=== PATIENT | male | born 1980 | race Caucasian/White ===

== ENCOUNTER 2018-01-03 17:44 | Emergency (ER) | payer OTHER ==
[2018-01-03] MEDS ORDERED: ASPIRIN 81 MG TABLET, CHEWABLE PO ONE (18:29)
--- NOTE | 2018-01-03 18:29 | ER Document Report ---
ED Medical Screen (RME) - General Chief Complaint: Near Syncope Stated Complaint: ARM NUMBNESS Time Seen by Provider: 01/03/18 18:25 Mode of Arrival: Ambulatory Information source: Patient TRAVEL OUTSIDE OF THE [place] IN LAST 30 DAYS: No - HPI Patient complains to provider of: Chest pain, left arm numbness, near syncope Notes: 01/03/18 18:28 Patient is a 37-year-old male presenting to the emergency room today complaining of left-sided chest pain with pins and needles sensation down the left arm and a near syncopal episode that occurred today, he has a history of hypertension and stopped taking medication for this, also has a history of atrial fibrillation 1 episode - Related Data Allergies/Adverse Reactions: Penicillins Allergy (Verified 01/03/18 17:49) Past Medical History - Social History Chew tobacco use (# tins/day): No Frequency of alcohol use: Occasional Drug Abuse: Marijuana Pulmonary Medical History: Reports: Hx Asthma - CHILDHOOD Renal/ Medical History: Denies: Hx Peritoneal Dialysis Past Surgical History: Reports: Hx Adenoidectomy, Hx Nose Surgery - 1986, Hx Tonsillectomy Physical Exam - Vital signs Vitals: Temp Pulse Resp BP Pulse Ox 98.3 F 65 18 141/86 H 100 01/03/18 18:03 01/03/18 18:03 01/03/18 18:03 01/03/18 18:03 01/03/18 18:03 Course - Vital Signs Vital signs: Temp Pulse Resp BP Pulse Ox 98.3 F 65 18 141/86 H 100 01/03/18 18:03 01/03/18 18:03 01/03/18 18:03 01/03/18 18:03 01/03/18 18:03 Doctor's Discharge - Discharge Referrals: SILVIANO ROBLES MD [Primary Care Provider] - Follow up as needed
--- NOTE | 2018-01-03 18:58 | RADIOLOGY REPORT (SQ) ---
EXAM DESCRIPTION: CHEST 2 VIEWS COMPLETED DATE/TIME: 01/03/2018 6:44 pm REASON FOR STUDY: CP COMPARISON: None. EXAM PARAMETERS: NUMBER OF VIEWS: two views TECHNIQUE: Digital Frontal and Lateral radiographic views of the chest acquired. RADIATION DOSE: NA LIMITATIONS: none FINDINGS: LUNGS AND PLEURA: No consolidation, pneumothorax or pleural effusion. MEDIASTINUM AND HILAR STRUCTURES: No masses or contour abnormalities. HEART AND VASCULAR STRUCTURES: Heart normal size. No evidence for failure. BONES: No acute findings. HARDWARE: None in the chest. IMPRESSION: NO ACUTE RADIOGRAPHIC FINDING IN THE CHEST. TECHNICAL DOCUMENTATION: JOB ID: [id number] [employer]- All Rights Reserved Reading location - IP/workstation name: [email or web address]
[2018-01-03] MEDS ORDERED: ONDANSETRON 4 MG TAB.RAPDIS SL ONE (19:28)
[2018-01-03] MEDS ORDERED: ONDANSETRON 4 MG TAB.RAPDIS ONE (19:30)
[2018-01-03 19:57] LABS: ABSOLUTE EOSINOPHILS # (AUTO) 0.1 10^3/uL (0.0-0.6); ABSOLUTE LYMPHOCYTES (AUTO) 1.9 10^3/uL (0.5-4.7); ABSOLUTE NEUT (AUTO) 6.9 10^3/uL (1.7-8.2); BASOPHILS % (AUTO) 0.4 % (0-2); EOSINOPHILS % (AUTO) 1.5 % (0-6); HEMATOCRIT 44.4 % (37.9-51.0); HEMOGLOBIN 15.3 g/dL (13.5-17.0); LYMPHOCYTES % (AUTO) 18.7 % (13-45); MEAN CORPUSCULAR HEMOGLOBIN 32.9 pg (27.0-33.4); MEAN CORPUSCULAR HGB CONC 34.5 g/dL (32.0-36.0); MEAN CORPUSCULAR VOLUME 96 fl (80-97); MONOCYTES % (AUTO) 9.8 % (3-13); PLATELET COUNT 264 10^3/uL (150-450); RED BLOOD COUNT 4.65 10^6/uL (4.35-5.55); RED CELL DISTRIBUTION WIDTH 13.6 % (11.5-14.0); SEGMENTED NEUTROPHILS % (AUTO) 69.6 % (42-78); TOTAL CELLS COUNTED % (AUTO) 100 %; WHITE BLOOD COUNT 9.9 10^3/uL (4.0-10.5)
[2018-01-03 20:20] LABS: ALANINE AMINOTRANSFERASE 102 U/L (21-72); ALBUMIN 4.5 g/dL (3.5-5.0); ALKALINE PHOSPHATASE 74 U/L (38-126); ANION GAP 15 (5-19); ASPARTATE AMINO TRANSFERASE 50 U/L (17-59); BILIRUBIN,DIRECT 0.3 mg/dL (0.0-0.4); BILIRUBIN,TOTAL 0.5 mg/dL (0.2-1.3); BLOOD UREA NITROGEN 12 mg/dL (7-20); CALCIUM 9.8 mg/dL (8.4-10.2); CARBON DIOXIDE 25 mmol/L (22-30); CHLORIDE 105 mmol/L (98-107); GLUCOSE 90 mg/dL (75-110); SODIUM 144.6 mmol/L (137-145); TOTAL PROTEIN 7.8 g/dL (6.3-8.2)
--- NOTE | 2018-01-03 22:01 | EKG REPORT ---
SEVERITY:- NORMAL ECG - SINUS RHYTHM : Confirmed by: Eric Bunn 03-Jan-2018 22:00:42
--- NOTE | 2018-01-03 23:11 | ER Document Report ---
ED General - General Chief Complaint: Near Syncope Stated Complaint: ARM NUMBNESS Time Seen by Provider: 01/03/18 18:25 Mode of Arrival: Ambulatory Notes: Patient is a 37-year-old male with a past medical history of paroxysmal atrial fibrillation who presents with concerns of an episode of lightheadedness and left upper extremity paresthesias that occurred several hours prior to arrival. Patient states that he was driving his vehicle when he acutely became lightheaded and felt a sensation of tingling and numbness in his left upper extremity most dominant in his left hand. He states that this episode came on spontaneously, lasted for approximately 5 minutes and then completely resolved. He denies any ongoing symptoms since that time. He notes that at the time of the episode he did have a dull, throbbing, left-sided chest discomfort. He states that pain has likewise resolved. He reports that 2-3 times over the past 1 week he has had intermittent paresthesias of his left upper extremity specifically again located mostly to hand which all have completely resolved but he has never had the associated symptoms that he did today. He does not have a primary care physician. He denies any medications. He denies any difficulty speaking, confusion, weakness, or loss of sensation during his episode today. TRAVEL OUTSIDE OF THE [place] IN LAST 30 DAYS: No - Related Data Allergies/Adverse Reactions: Penicillins Allergy (Verified 01/03/18 17:49) Past Medical History - General Information source: Patient - Social History Smoking Status: Never Smoker Chew tobacco use (# tins/day): No Frequency of alcohol use: Occasional Drug Abuse: Marijuana Lives with: Friend Family History: Reviewed & Not Pertinent Patient has suicidal ideation: No Patient has homicidal ideation: No Pulmonary Medical History: Reports: Hx Asthma - CHILDHOOD Renal/ Medical History: Denies: Hx Peritoneal Dialysis Past Surgical History: Reports: Hx Adenoidectomy, Hx Nose Surgery - 1986, Hx Tonsillectomy Review of Systems - Review of Systems Notes: Constitutional: Negative for fever. HENT: Negative for sore throat. Eyes: Negative for visual changes. Cardiovascular: Positive for chest pain. Respiratory: Negative for shortness of breath. Gastrointestinal: Negative for abdominal pain, vomiting or diarrhea. Genitourinary: Negative for dysuria. Musculoskeletal: Negative for back pain. Skin: Negative for rash. Neurological: Negative for headaches, positive for left upper extremity paresthesias 10 point ROS negative except as marked above and in HPI. Physical Exam - Vital signs Vitals: Temp Pulse Resp BP Pulse Ox 98.3 F 65 18 141/86 H 100 01/03/18 18:03 01/03/18 18:03 01/03/18 18:03 01/03/18 18:03 01/03/18 18:03 Interpretation: Normal Notes: PHYSICAL EXAMINATION: GENERAL: Well-appearing, well-nourished and in no acute distress. HEAD: Atraumatic, normocephalic. EYES: Pupils equal round and reactive to light, extraocular movements intact, sclera anicteric, conjunctiva are normal. ENT: nares patent, oropharynx clear without exudates. Moist mucous membranes. NECK: Normal range of motion, supple without lymphadenopathy LUNGS: Breath sounds clear to auscultation bilaterally and equal. No wheezes rales or rhonchi. HEART: Irregularly irregular rhythm without murmurs ABDOMEN: Soft, nontender, normoactive bowel sounds. No guarding, no rebound. No masses appreciated. EXTREMITIES: Normal range of motion, no pitting or edema. No cyanosis. NEUROLOGICAL: Face symmetric. Tongue protrudes midline. Extraocular motions intact. Pupils are 2 mm and equally reactive. Normal speech, normal gait. 5 out of 5 strength in both the distal and proximal upper and lower extremities bilaterally. Sensation is grossly intact throughout. Finger to nose testing normal. Pronator drift normal. PSYCH: Normal mood, normal affect. SKIN: Warm, Dry, normal turgor, no rashes or lesions noted. Course - Re-evaluation Re-evalutation: 01/03/18 23:09 Patient presents with an episode of left arm paresthesias with associated near syncope that occurred at approximately 4:30 PM today and lasted for 5 minutes but has since resolved. The time of my exam he is otherwise completely asymptomatic. Neurologic examination at the bedside without any focal neurologic deficits. The patient is noted to be in A. fib with mild associated bradycardia. Labs including troponin are unremarkable. Chest x-ray is clear. Clinical history and exam are not consistent with an acute TIA or stroke. Patient's bradycardia in the setting of A. fib is suspicious for prolonged pauses with his A. fib that may have presented with his near syncope and associated chest discomfort and left upper extremity paresthesias. Patient did not have any additional neurologic symptoms that would suggest that this is a TIA and he is also had 3-4 episodes of similar symptoms over the past several weeks that again would go against the idea of a TIA. Will repeat a second troponin to ensure that the patient has not had any acute infarction and if this remains normal plan for discharge with cardiology follow-up for consideration of long-term telemetry monitoring. I have also asked that the patient begin taking an aspirin daily as his chads vas score is 1. 01/04/18 00:52 Repeat troponin remains normal. Patient remains without any further symptoms. At this time will discharge with return precautions and follow-up recommendations. Verbal discharge instructions given a the bedside and opportunity for questions given. Medication warnings reviewed. Patient is in agreement with this plan and has verbalized understanding of return precautions and the need for primary care follow-up in the next 24-72 hours. - Vital Signs Vital signs: Temp Pulse Resp BP Pulse Ox 98.3 F 60 20 133/87 H 97 01/03/18 18:03 01/03/18 22:43 01/04/18 01:01 01/04/18 01:01 01/04/18 01:01 - Laboratory Result Diagrams: 01/03/18 19:35 01/03/18 19:35 Laboratory results interpreted by me: 01/03/18 19:35 ALT 102 H - Diagnostic Test Radiology reviewed: Image reviewed, Reports reviewed Radiology results interpreted by me: 01/04/18 00:52 Chest x-ray: No acute infiltrate or pneumothorax - EKG Interpretation by Me Additional EKG results interpreted by me: 01/04/18 00:52 Sinus rhythm. Rate 57. No ST elevations or depressions. QTC is 396. Discharge - Discharge Clinical Impression: Paroxysmal atrial fibrillation, Chest discomfort, Near syncope, Paresthesia of left upper extremity Condition: Good Disposition: HOME, SELF-CARE Additional Instructions: You were seen today for chest pain, lightheadedness and left upper extremity tingling. Based on your cardiac enzyme testing, chest x-ray, and EKG it does not appear that it is from an immediately life-threatening cause at this time. Although your testing here is normal is critical that you follow-up with your primary care physician for continued evaluation of this episode and consideration of continuous outpatient cardiac monitoring and possibly a stress test. Please return to emergency department immediately if you have worsening of your chest pain, shortness of breath, vomiting, become unable to exert yourself due to pain or difficulty breathing, you pass out, or have any pain that radiates into your arms, jaw, or back. Please also return if you have any additional symptoms that are concerning to you. Please begin taking aspirin 81 mg daily for your intermittent atrial fibrillation Referrals: SILVIANO ROBLES MD [ASSOCIATE] - Follow up as needed
[2018-01-04 01:07] VITALS: BP 133/87
== END 2018-01-04 01:08 | disposition home or self-care (01) ==
LOC: ER 17:44
DX: I48.0 Paroxysmal atrial fibrillation (principal); R00.1 Bradycardia, unspecified; R55 Syncope and collapse; R20.0 Anesthesia of skin; R20.2 Paresthesia of skin; R07.9 Chest pain, unspecified; Z88.0 Allergy status to penicillin
CPT/HCPCS: 99284; 36415; 85025; 80053; 84484; 71046; 93005; 93010; S0119

== ENCOUNTER 2018-03-19 17:15 | Emergency (ER) | payer OTHER ==
[2018-03-19] MEDS ORDERED: NORMAL SALINE 1000 ML 1,000 ML IV ONE (18:08)
--- NOTE | 2018-03-19 18:08 | ER Document Report ---
ED Medical Screen (RME) - General Chief Complaint: Leg Pain Stated Complaint: LEFT LEG PAIN Time Seen by Provider: 03/19/18 17:55 Mode of Arrival: Ambulatory Information source: Patient Notes: 37-year-old male presents to ED for complaint of pain swelling and redness to his left leg. He states that he was just having pain and irritation for the last 3 weeks after he fell off a ladder. He states the swelling and redness started on Saturday. He states he went to the urgent care today and they sent him to the ER and stated that they could not do Dopplers and that he needed blood work and Doppler for his concentrated dark urine and his swelling and redness to his left lower extremity. Patient is able to ambulate without difficulty. He thought he might have broken his leg until urgent care told him that it was possibly a blood clot. Patient is alert and oriented respirations regular and unlabored speaking in full sentences. He does have a red very edematous left leg from above the knee to the foot. He does have palpable pedal pulses. I have greeted and performed a rapid initial assessment of this patient. A comprehensive ED assessment and evaluation of the patient, analysis of test results and completion of medical decision making process will be conducted by an additional ED providers. TRAVEL OUTSIDE OF THE [place] IN LAST 30 DAYS: No - Related Data Allergies/Adverse Reactions: Penicillins Allergy (Verified 03/19/18 17:20) Past Medical History Pulmonary Medical History: Reports: Hx Asthma - CHILDHOOD Renal/ Medical History: Denies: Hx Peritoneal Dialysis Past Surgical History: Reports: Hx Adenoidectomy, Hx Nose Surgery - 1986, Hx Tonsillectomy Physical Exam - Vital signs Vitals: Temp Pulse Resp BP Pulse Ox 98.9 F 91 17 140/82 H 97 03/19/18 17:21 03/19/18 17:21 03/19/18 17:21 03/19/18 17:21 03/19/18 17:21 Course - Vital Signs Vital signs: Temp Pulse Resp BP Pulse Ox 98.9 F 91 17 140/82 H 97 03/19/18 17:21 03/19/18 17:21 03/19/18 17:21 03/19/18 17:21 03/19/18 17:21
[2018-03-19] MEDS ORDERED: KETOROLAC TROMETHAMINE INJ/PF 30 MG/1 ML SDV IV ONE (19:19)
[2018-03-19] MEDS ORDERED: CLINDAMYCIN 600 MG/D5W RTU 600 MG/50 ML RTUPB IV ONE (19:19)
--- NOTE | 2018-03-19 19:20 | ER Document Report ---
HPI - HPI Patient complains to provider of: Left leg pain Onset: Last week Quality of pain: Achy Pain Level: 3 Context: Patient presents complaining of left lower extremity pain. Patient states that he struck his leg by falling off of a ladder several weeks ago. Patient states since then he has had gradual pain with fever 3 days ago and redness that started 2 days ago. Associated Symptoms: Fever, Other - Left lower extremity pain Exacerbated by: Movement Relieved by: Denies Similar symptoms previously: No Recently seen / treated by doctor: No - ROS ROS below otherwise negative: Yes Systems Reviewed and Negative: Yes All other systems reviewed and negative - CONSTITUTIONAL Constitutional: REPORTS: Fever - NEURO Neurology: DENIES: Weakness - GASTROINTESTINAL Gastrointestinal: DENIES: Nausea - MUSCULOSKELETAL Musculoskeletal: REPORTS: Extremity pain, Swelling - DERM Skin Color: Erythema Past Medical History - General Information source: Patient - Social History Smoking Status: Never Smoker Frequency of alcohol use: Occasional Drug Abuse: Marijuana Occupation: Retired Lives with: Family Family History: Reviewed & Not Pertinent Pulmonary Medical History: Reports: Hx Asthma - CHILDHOOD Renal/ Medical History: Denies: Hx Peritoneal Dialysis GI Medical History: Reports: Hx Gastroesophageal Reflux Disease Past Surgical History: Reports: Hx Adenoidectomy, Hx Nose Surgery - 1986, Hx Tonsillectomy Vertical Provider Document - CONSTITUTIONAL Agree With Documented VS: Yes Exam Limitations: No Limitations General Appearance: WD/WN, No Apparent Distress - INFECTION CONTROL TRAVEL OUTSIDE OF THE [place] IN LAST 30 DAYS: No - HEENT HEENT: Atraumatic, Normocephalic - NECK Neck: Normal Inspection - RESPIRATORY Respiratory: Breath Sounds Normal, No Respiratory Distress - CARDIOVASCULAR Cardiovascular: Regular Rate, Regular Rhythm - BACK Back: Normal Inspection - MUSCULOSKELETAL/EXTREMETIES Musculoskeletal/Extremeties: MAEW, Tender - Left lower extremity pain with swelling and erythema. Area is most tender to a centralized reddened fluctuant lesion concerning for abscess, Edema - NEURO Level of Consciousness: Awake, Alert, Appropriate Motor/Sensory: No Motor Deficit - DERM Integumentary: Warm, Dry, Abscess Course - Vital Signs Vital signs: Temp Pulse Resp BP Pulse Ox 98.9 F 91 17 140/82 H 97 03/19/18 17:21 03/19/18 17:21 03/19/18 17:21 03/19/18 17:21 03/19/18 17:21 - Laboratory Result Diagrams: 03/19/18 19:30 03/19/18 19:30 Laboratory results interpreted by me: 03/19/18 20:16 Labs- Entire Visit 03/19/18 03/19/18 03/19/18 19:10 19:30 19:30 WBC 11.5 H RBC 4.18 L Hgb 13.6 Hct 39.5 MCV 95 MCH 32.5 MCHC 34.4 RDW 13.4 Plt Count 299 Seg Neutrophils % 69.2 Lymphocytes % 15.0 Monocytes % 12.5 Eosinophils % 2.9 Basophils % 0.4 Absolute Neutrophils 8.0 Absolute Lymphocytes 1.7 Absolute Monocytes 1.4 Absolute Eosinophils 0.3 Absolute Basophils 0.0 Sodium 142.5 Potassium 4.0 Chloride 105 Carbon Dioxide 25 Anion Gap 13 BUN 9 Creatinine 0.89 Est GFR ( Amer) > 60 Est GFR (Non-Af Amer) > 60 Glucose 83 Calcium 9.4 Total Bilirubin 0.6 Direct Bilirubin 0.3 Neonat Total Bilirubin Not Reportable Neonat Direct Bilirubin Not Reportable Neonat Indirect Bili Not Reportable AST 31 ALT 51 Alkaline Phosphatase 98 Creatine Kinase 74 Total Protein 7.2 Albumin 3.9 Urine Color YELLOW Urine Appearance CLEAR Urine pH 6.0 Ur Specific [place] 1.008 Urine Protein NEGATIVE Urine Glucose (UA) NEGATIVE Urine Ketones NEGATIVE Urine Blood NEGATIVE Urine Nitrite NEGATIVE Urine Bilirubin NEGATIVE Urine Urobilinogen 4.0 H Ur Leukocyte Esterase NEGATIVE Urine WBC (Auto) 0 Urine RBC (Auto) 1 Urine Mucus (Auto) RARE Urine Ascorbic Acid NEGATIVE - Diagnostic Test Radiology reviewed: Reports reviewed Procedures - Incision and Drainage Left Leg Type: Simple Anesthetic type: 1% Lidocaine Blade size: 11 I&D procedure: Betadine prep applied Incision Method: Incision made by scalpel Amount/type of drainage: Moderate amount of purulent drainage Discharge - Discharge Clinical Impression: Left leg cellulitis, Abscess, Encounter for incision and drainage procedure Condition: Stable Disposition: HOME, SELF-CARE Instructions: Abscess ([facility]), Cellulitis ([facility]), Oral Narcotic Medication ([facility]), Post Incision and Drainage Additional Instructions: Return immediately for any new or worsening symptoms Followup with your primary care provider, call tomorrow to make a followup appointment Return in 2 days for wound recheck Prescriptions: Clindamycin HCl [Cleocin Hcl] 300 mg PO QID #28 capsule Referrals: [facility] [Provider Group] - Follow up as needed
[2018-03-19 19:28] LABS: APPEARANCE,URINE CLEAR; BILIRUBIN,URINE NEGATIVE (NEGATIVE); COLOR,URINE YELLOW; GLUCOSE, URINE NEGATIVE (NEGATIVE); KETONES,URINE NEGATIVE (NEGATIVE); LEUKOCYTE ESTERASE,URINE NEGATIVE (NEGATIVE); NITRITE,URINE NEGATIVE (NEGATIVE); PROTEIN,URINE NEGATIVE (NEGATIVE); URINE SPECIFIC GRAVITY 1.008
[2018-03-19 19:50] LABS: ABSOLUTE EOSINOPHILS # (AUTO) 0.3 10^3/uL (0.0-0.6); ABSOLUTE LYMPHOCYTES (AUTO) 1.7 10^3/uL (0.5-4.7); ABSOLUTE MONOCYTES (AUTO) 1.4 10^3/uL (0.1-1.4); BASOPHILS % (AUTO) 0.4 % (0-2); EOSINOPHILS % (AUTO) 2.9 % (0-6); HEMATOCRIT 39.5 % (37.9-51.0); HEMOGLOBIN 13.6 g/dL (13.5-17.0); MEAN CORPUSCULAR HEMOGLOBIN 32.5 pg (27.0-33.4); MEAN CORPUSCULAR HGB CONC 34.4 g/dL (32.0-36.0); MEAN CORPUSCULAR VOLUME 95 fl (80-97); MONOCYTES % (AUTO) 12.5 % (3-13); PLATELET COUNT 299 10^3/uL (150-450); RED BLOOD COUNT 4.18 10^6/uL (4.35-5.55); RED CELL DISTRIBUTION WIDTH 13.4 % (11.5-14.0); SEGMENTED NEUTROPHILS % (AUTO) 69.2 % (42-78); TOTAL CELLS COUNTED % (AUTO) 100 %; WHITE BLOOD COUNT 11.5 10^3/uL (4.0-10.5)
[2018-03-19 20:08] LABS: ALANINE AMINOTRANSFERASE 51 U/L (21-72); ALBUMIN 3.9 g/dL (3.5-5.0); ALKALINE PHOSPHATASE 98 U/L (38-126); ANION GAP 13 (5-19); ASPARTATE AMINO TRANSFERASE 31 U/L (17-59); BILIRUBIN,DIRECT 0.3 mg/dL (0.0-0.4); BILIRUBIN,TOTAL 0.6 mg/dL (0.2-1.3); BLOOD UREA NITROGEN 9 mg/dL (7-20); CALCIUM 9.4 mg/dL (8.4-10.2); CARBON DIOXIDE 25 mmol/L (22-30); CHLORIDE 105 mmol/L (98-107); CREATINE KINASE 74 U/L (55-170); GLUCOSE 83 mg/dL (75-110); SODIUM 142.5 mmol/L (137-145); TOTAL PROTEIN 7.2 g/dL (6.3-8.2)
[2018-03-19] MEDS ORDERED: HYDROCODONE/ACETAMINOPHEN 5-325 MG (6 TAB/ER DISP) PO PRN (20:17)
--- NOTE | 2018-03-19 20:24 | RADIOLOGY REPORT (SQ) ---
EXAM DESCRIPTION: VENOUS UNILATERAL LOWER COMPLETED DATE/TIME: 03/19/2018 7:37 pm REASON FOR STUDY: left leg pain swelling COMPARISON: None. TECHNIQUE: Dynamic and static garcia scale and color images acquired of the left leg venous system. Se lected spectral images acquired with additional compression and augmentation maneuvers. The contralat eral common femoral vein and saphenofemoral junction were also imaged. Images stored on PACS. LIMITATIONS: None. FINDINGS: COMMON FEMORAL: Normal phasicity, compression and augmentation. No visualized echogenic ma terial on garcia scale. No defects on color images. FEMORAL: Normal compression and augmentation. No visualized echogenic material on garcia scale. No defe cts on color images. POPLITEAL: Normal compression, augmentation. No visualized echogenic material on garcia scale. No defec ts on color images. CALF VESSELS: Normal compression, augmentation. No visualized echogenic material on garcia scale. No de fects on color images. GSV and SSV: Normal compression, augmentation. No visualized echogenic material on garcia scale. No def ects on color images. ANY DEEP VENOUS INSUFFICIENCY: Not evaluated. ANY EVIDENCE OF POPLITEAL CYST: No. OTHER: No other significant finding. CONTRALATERAL COMMON FEMORAL VEIN AND SAPHENOFEMORAL JUNCTION: Normal phasicity, compression and augmentation. No visualized echogenic material on garcia scale. No de fects on color images. IMPRESSION: NO EVIDENCE OF DVT OR SVT IN THE LEFT LEG. TECHNICAL DOCUMENTATION: JOB ID: [id number] [employer]- All Rights Reserved Reading location - IP/workstation name: [email or web address]
[2018-03-19 20:44] VITALS: BP 139/91
== END 2018-03-19 20:44 | disposition home or self-care (01) ==
LOC: ER 17:15
DX: L02.416 Cutaneous abscess of left lower limb (principal); L03.116 Cellulitis of left lower limb; M79.605 Pain in left leg; R50.9 Fever, unspecified; F12.10 Cannabis abuse, uncomplicated
CPT/HCPCS: 99283; 96375; 96365; 36415; 87040; 87070; 87205; 82550; 85025; 87077; 80053; 81001; 93971; 10060; J1885